=== PATIENT | female | born 1980 | race Two or more races ===

== ENCOUNTER 2023-03-29 20:24 | Inpatient (IN) | payer OTHER ==
[~2023-03-29] VITALS: Ht 154.9 cm; Wt 65.8 kg
[2023-03-29 23:30] LABS: HEMATOCRIT 37.1 % (36.0-45.00); HEMOGLOBIN 12.3 g/dL (12.0-15.00); MEAN CELL VOLUME 85.6 fL (80.00-100.00); MEAN CORPUSCULAR HEMOGLOBIN 28.5 pg (27.00-32.0); MEAN CORPUSCULAR HGB CONC 33.3 g/dl (32.0-36.0); PLATELET COUNT 561 K/uL (150-450); RED BLOOD COUNT 4.33 M/uL (4.00-6.00); RED CELL DISTRIBUTION WIDTH 13.9 % (11.5-14.5)
[2023-03-29 23:43] LABS: ALBUMIN 4.2 gm/dL (3.4-5.0); BILIRUBIN TOTAL 0.4 mg/dL (0.3-1.2); CALCIUM 9.9 mg/dL (8.5-10.1); CREATININE SERUM 0.79 mg/dL (0.55-1.02); GFR 80.6; GLOBULINA 3.9 G/DL (2.4-3.5); POTASSIUM 4.51 mEq/L (3.5-5.1); TOTAL PROTEIN 8.1 gm/dL (6.4-8.2)
[2023-03-30 20:08] LABS: INR 1.03; PARTIAL THROMBOPLASTIN TIME 28.7 SECONDS (22.0-34.0); PROTHROMBIN TIME 10.8 SECONDS (9.0-11.5)
[2023-03-31 07:48] LABS: HEMATOCRIT 29.8 % (36.0-45.00); HEMOGLOBIN 10.3 g/dL (12.0-15.00); MEAN CELL VOLUME 84.2 fL (80.00-100.00); MEAN CORPUSCULAR HEMOGLOBIN 29.1 pg (27.00-32.0); MEAN CORPUSCULAR HGB CONC 34.6 g/dl (32.0-36.0); PLATELET COUNT 480 K/uL (150-450); RED BLOOD COUNT 3.53 M/uL (4.00-6.00); RED CELL DISTRIBUTION WIDTH 13.7 % (11.5-14.5)
[2023-03-31 08:30] LABS: ALBUMIN 3.1 gm/dL (3.4-5.0); BILIRUBIN TOTAL 0.66 mg/dL (0.3-1.2); CALCIUM 8.2 mg/dL (8.5-10.1); CREATININE SERUM 0.66 mg/dL (0.55-1.02); GFR 99.19; POTASSIUM 4.01 mEq/L (3.5-5.1); TOTAL PROTEIN 6.1 gm/dL (6.4-8.2)
[2023-03-31 16:13] LABS: URINE APPEARANCE Clear; URINE BILIRRUBIN Negative (NEGATIVE); URINE BLOOD Negative; URINE COLOR Yellow; URINE GLUCOSE Negative (NEGATIVE); URINE LEUKOCYTE Trace; URINE NITRATE Negative; URINE PROTEIN Negative (NEGATIVE); URINE UROBILINOGEN 0.2 E.U./dl
[2023-03-31 16:16] LABS: URINE BACTERIA 8.8 uL (0.0-1933); URINE EPITHELIAL CELLS 6.4 uL (0.0-38.8); URINE RBC 10.2 uL (0.0-20.8); URINE WBC 7.5 uL (0.0-23.2)
[2023-04-02 05:05] LABS: HEMATOCRIT 29.8 % (36.0-45.00); MEAN CELL VOLUME 84.1 fL (80.00-100.00); MEAN CORPUSCULAR HEMOGLOBIN 28.2 pg (27.00-32.0); MEAN CORPUSCULAR HGB CONC 33.5 g/dl (32.0-36.0); PLATELET COUNT 452 K/uL (150-450); RED BLOOD COUNT 3.54 M/uL (4.00-6.00)
[2023-04-02 05:06] LABS: HEMATOCRIT 29.7 % (36.0-45.00); RED BLOOD COUNT 3.5 M/uL (4.00-6.00)
[2023-04-02 05:09] LABS: HEMOGLOBIN 10.1 g/dL (12.0-15.00)
[2023-04-02 05:16] LABS: CALCIUM 8.4 mg/dL (8.5-10.1); CREATININE SERUM 0.62 mg/dL (0.55-1.02); GFR 106.61; POTASSIUM 3.55 mEq/L (3.5-5.1)
== END 2023-04-03 15:58 | disposition home or self-care (01) | DRG 419 ==
LOC: ER 20:24 → MEDI 03-30 19:13
PROVIDERS: Emergency Medicine; General Practice; Surgery; ADMIT Specialist; ATTEND Specialist
PROC: BT4JZZZ Ultrasonography of Kidneys and Bladder (ICD-10-PCS; 2023-03-29)
PROC: BW21ZZZ Computerized Tomography (CT Scan) of Abdomen and Pelvis (ICD-10-PCS; 2023-03-30)
PROC: 0FT44ZZ Resection of Gallbladder, Percutaneous Endoscopic Approach (ICD-10-PCS; principal; 2023-04-01 14:15)
DX: K80.00 Calculus of gallbladder with acute cholecystitis without obstruction (principal); D72.828 Other elevated white blood cell count; Z88.6 Allergy status to analgesic agent